=== PATIENT | male | born 1990 | race Caucasian/White ===

== ENCOUNTER 2023-11-08 09:49 | Outpatient (AMB) | payer OTHER, SELFPAY ==
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
[2023-11-08 09:55] VITALS: BP 128/78; PULSE 92; TEMP 36.6; O2SAT 99
== END 2023-11-08 10:29 | disposition home or self-care (01) ==
PROVIDERS: Visit Provider Internal Medicine
DX: M54.9 Dorsalgia, unspecified (principal)
CPT/HCPCS: 99213

== ENCOUNTER 2023-11-19 11:18 | Outpatient (AMB) | payer OTHER, SELFPAY ==
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
[2023-11-19 11:19] VITALS: BP 122/70; PULSE 99; O2SAT 96; BMI 29.9
== END 2023-11-19 13:44 | disposition home or self-care (01) ==
PROVIDERS: Visit Provider Nurse Practitioner Family
DX: M54.50 Low back pain, unspecified (principal)
CPT/HCPCS: 99213

== ENCOUNTER 2024-01-13 11:00 | Outpatient (RCR) | payer OTHER, SELFPAY ==
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
--- NOTE | 2024-01-17 10:17 | MHC.PT.DC ---
[facility] [place] [facility] [place] [facility] [place] [facility] [address] Omid Hassan [address] [phone] F: [phone] F: [phone] F: [phone] F: [phone] Physical Therapy Discharge Report Diagnosis: This is a 33 yo male presenting to skilled PT with a script for low back pain. Date of Surgery: Date of Evaluation: 11/26/23 Date of Discharge: 01/17/24 Treatments to Date: 15 Cancellations to Date: 0 No Shows to Date: 0 Discharge Status: Insurance Declined Tx Recommend MD Follow-up Discharge Summary: Patient has come to 17 PT appointments. Every time we try to progress his symptoms get exacerbated, ie progressing weight and core stab in standing. He continues to have similar symptoms and has not been able to progress functionally at home. He was educated that his [employer] insurance is ending this month and we do not take VA. As this is the case he would like to finish as many appointments as he can even due to limited progress and then we will DC next week when insurance changes. He was educated on continuing HEP and new evaluation with spine clinic to assess new POC moving forward. Electronically signed by: Darlene Kunz PT Please sign and return to therapist. Thank you for your referral.
== END 2024-01-17 10:18 | disposition home or self-care (01) ==
LOC: HO.PTCHIC 11:00
PROVIDERS: Visit Provider Nurse Practitioner Family
DX: M54.50 Low back pain, unspecified (principal); M54.6 Pain in thoracic spine
CPT/HCPCS: 97014; 97110; 97140; 97161